=== PATIENT | female | born 2000 ===

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

== ENCOUNTER 2019-01-26 10:55 | Observation (INO) | payer OTHER ==
[2019-01-26] MEDS ORDERED: Sodium Chloride 0.9% 1,000 ML IV ONE (11:14)
[2019-01-26 11:46] LABS: BASO % 0.5 % (0.0-2.0); EOS # 0.1 K/uL (0.0-0.7); EOS % 0.6 % (0.0-4.0); HEMOGLOBIN 13.6 g/dL (11.0-16.0); LYMPH # 2.5 K/uL (1.0-4.3); LYMPH % 26.2 % (20.0-40.0); MEAN CORPUSCULAR HEMOGLOBIN 28.8 pg (27.0-31.0); MEAN CORPUSCULAR HGB CONC 32.6 g/dL (33.0-37.0); MEAN PLATELET VOLUME 8.7 fL (7.2-11.7); MONO # 0.4 K/uL (0.0-0.8); MONO % 3.7 % (0.0-10.0); NEUT # 6.6 K/uL (1.8-7.0); RBC 4.71 Mil/uL (3.80-5.20); RED CELL DISTRIBUTION WIDTH 12.9 % (11.5-14.5); WHITE BLOOD COUNT 9.6 K/uL (4.8-10.8)
[2019-01-26 11:49] LABS: MEAN CELL VOLUME 88.4 fL (81.0-99.0)
[2019-01-26 11:50] LABS: ALB/GLOB RATIO 1.6 (1.0-2.1); BLOOD UREA NITROGEN 12 mg/dL (7-17); CALCIUM 9.4 mg/dl (8.6-10.4); GFR NON-AFRICAN AMERICAN > 60; LIPASE 61 U/L (23-300)
[2019-01-26 12:03] LABS: ALT/SGPT 43 U/L (9-52); AST/SGOT 57 U/L (14-36)
[2019-01-26 12:24] LABS: INR 1.1; PROTHROMBIN TIME 11.8 SECONDS (9.7-12.2)
--- NOTE | 2019-01-26 12:55 | RAD ---
Chest x-ray single frontal view History: Abdominal pain. Comparison: None available. Findings: No focal infiltrate or effusion. Heart size within normal limits. Impression: No focal infiltrate or effusion.
[2019-01-26] MEDS ORDERED: Iodixanol 320 MG/ML 100 ML BOTTLE IV ONE (12:58)
[2019-01-26] MEDS ORDERED: Sodium Chloride 0.9% 1,000 ML ONE (13:50)
--- NOTE | 2019-01-26 14:10 | CT ---
Date of service: 01/26/2019 PROCEDURE: CT Abdomen and Pelvis. HISTORY: Abdominal pain and vomiting. COMPARISON: No prior studies available for comparison TECHNIQUE: Contiguous axial images of the abdomen and pe pelvis performed following intravenous injection of approximately 100 cc Visipaque 320 contrast material. Additional 2D sagittal and coronal reformats generated. Radiation dose: Total exam DLP = 198.0 mGy-cm. This CT exam was performed using one or more of the following dose reduction techniques: Automated exposure control, adjustment of the mA and/or kV according to patient size, and/or use of iterative reconstruction technique. FINDINGS: LOWER THORAX: There is a small hiatal hernia with what appears represent a small amount of fluid in the distal esophagus possibly due to reflux. Heart size normal. Lung bases clear. LIVER: Liver exhibits relatively normal size measuring just over 17 cm in CC dimension. No obvious hepatic masses or collections. Portal and splenic veins are opacified.. Minimal central intrahepatic biliary ductal dilatation. GALLBLADDER AND BILE DUCTS: Gallbladder is physiologically distended. No evidence of intraluminal gallbladder calculi. There appears to be a small amount of pericholecystic fluid PANCREAS: Pancreas appears unremarkable without masses collections or calcifications. No significant pancreatic ductal dilatation so far as can be seen. SPLEEN: Spleen exhibits normal size and attenuation pattern without masses collections or calcifications. ADRENALS: No adrenal lesions are identified. KIDNEYS AND URETERS: Kidneys demonstrate symmetric nephrograms. No evidence of nephrolithiasis or hydronephrosis. BLADDER: Urinary bladder is incompletely distended which in part accounts for slight thick-walled appearance however correlation with urinalysis recommended to exclude cystitis. REPRODUCTIVE: Uterus appears grossly unremarkable however the adnexa are difficult to evaluate due to what appears represent loops of unopacified small bowel as well as redundant large bowel and small amount of pelvic ascites. The possibility of cystic adnexal changes cannot be excluded. APPENDIX: What appears represent the appendix grossly unremarkable (best seen on axial series 3, image number 93 through 103). BOWEL: Evaluation of the bowel is somewhat limited due to the lack of oral contrast material. Stomach is partially distended with liquified food debris and air with slight thick-walled appearance. Visualized loops of small bowel exhibit normal contour and caliber. No evidence of acute mechanical small bowel obstruction. There is slight wall thickening of the colon despite the colon being collapsed throughout. Findings may represent a nonspecific colitis; rule out infectious versus inflammatory etiology. PERITONEUM: There is free fluid seen in the pelvis with what appears represent a small amount pericholecystic fluid as well. LYMPH NODES: Unremarkable. No enlarged lymph nodes. VASCULATURE: Unremarkable. No aortic aneurysm. No significant aortic atherosclerotic calcification or mural plaque present. BONES: Osseous structures appear grossly unremarkable. OTHER FINDINGS: None. IMPRESSION: Minimal central intrahepatic biliary ductal dilatation. There appears to be a small amount of free fluid surrounding the gallbladder. There is also small amount of pelvic ascites. Wall thickening of the colon in part due to collapse however wall thickening is somewhat greater than one would expect from on collapse alone and therefore colitis is suspected. Clinical correlation recommended. Evaluation of the adnexal structures limited as above. Follow-up pelvic ultrasound could be performed for further evaluation if indicated to exclude any cystic adnexal changes. Urinary bladder is incompletely distended which in part accounts for thick-walled appearance however correlation with urinalysis recommended to exclude cystitis
--- NOTE | 2019-01-26 14:17 | US ---
Pelvic ultrasound HISTORY: Pelvic pain. COMPARISON: None available. Technique: Real-time sonography was performed through the pelvis utilizing transabdominal and transvaginal technique. Findings: Uterus: 7.2 x 3.1 x 3.6 centimeters. Heterogeneous echotexture. Anteverted. Heterogeneous lesion within the subserosal posterior uterus suggestive for a fibroid lesion measuring 9 x 6 x 8 millimeters. Endometrium measures 4.4 millimeters, within normal limits. No free fluid in the pelvic cul-de-sac. Right ovary: 2.6 x 2.3 x 2.2 centimeters. Normal flow. Small follicles. Left ovary: 2.7 x 1.6 x 2.6 centimeters. Normal flow. Small follicles. Impression: 9 x 6 x 8 millimeter heterogeneous lesion within the posterior subserosal uterus suggestive for a fibroid lesion. Clinical correlation.
[2019-01-26 14:57] LABS: SQUAMOUS EPITHIAL < 1 /hpf (0-5); URINE BILIRUBIN NEGATIVE (NEGATIVE); URINE BLOOD NEGATIVE (NEGATIVE); URINE CLARITY Clear (Clear); URINE COLOR Yellow (YELLOW); URINE GLUCOSE (UA) NORMAL (Normal); URINE LEUKOCYTE ESTERASE NEG Leu/uL (Negative); URINE PROTEIN NEGATIVE (NEGATIVE); URINE UROBILINOGEN NORMAL mg/dL (0.2-1.0)
[2019-01-26 14:59] LABS: HCG,QUALITATIVE URINE NEGATIVE (NEGATIVE)
--- NOTE | 2019-01-26 15:29 | C.PDOC ---
Time Seen by Provider: 01/26/19 11:03 Chief Complaint (Nursing): GI Problem Past Medical History Vital Signs: Last Vital Signs Temp 97.8 F 01/26/19 13:36 Pulse 72 01/26/19 14:36 Resp 16 01/26/19 14:36 BP 114/77 01/26/19 14:36 Pulse Ox 96 01/26/19 14:36 - Medical History PMH: Asthma Surgical History: Tonsillectomy Family History: States: Unknown Family Hx - Social History Hx Alcohol Use: No Hx Substance Use: Yes (MARIJUANA) - Immunization History Hx Tetanus Toxoid Vaccination: No Hx Influenza Vaccination: No Hx Pneumococcal Vaccination: No ED Course And Treatment - Laboratory Results Result Diagrams: 01/26/19 11:26 01/26/19 11:26 Lab Results: PT 11.8 SECONDS (9.7-12.2) 01/26/19 11:26 INR 1.1 01/26/19 11:26 APTT 22 SECONDS (21-34) 01/26/19 11:26 Total Bilirubin 0.9 mg/dL (0.2-1.3) 01/26/19 11:26 AST 57 U/L (14-36) H D 01/26/19 11:26 ALT 43 U/L (9-52) 01/26/19 11:26 Alkaline Phosphatase 64 U/L (38-126) 01/26/19 11:26 Total Protein 8.1 g/dL (6.3-8.3) 01/26/19 11:26 Albumin 5.0 g/dL (3.5-5.0) 01/26/19 11:26 Globulin 3.1 gm/dL (2.2-3.9) 01/26/19 11:26 Albumin/Globulin Ratio 1.6 (1.0-2.1) 01/26/19 11:26 Lipase 61 U/L (23-300) 01/26/19 11:26 Urine Color Yellow (YELLOW) 01/26/19 14:47 Urine Clarity Clear (Clear) 01/26/19 14:47 Urine pH 7.0 (5.0-8.0) 01/26/19 14:47 Ur Specific Allyn 1.016 (1.003-1.030) 01/26/19 14:47 Urine Protein Negative mg/dL (NEGATIVE) 01/26/19 14:47 Urine Glucose (UA) Normal mg/dL (Normal) 01/26/19 14:47 Urine Ketones 2+ mg/dL (NEGATIVE) H 01/26/19 14:47 Urine Blood Negative (NEGATIVE) 01/26/19 14:47 Urine Nitrate Negative (NEGATIVE) 01/26/19 14:47 Urine Bilirubin Negative (NEGATIVE) 01/26/19 14:47 Urine Urobilinogen Normal mg/dL (0.2-1.0) 01/26/19 14:47 Ur Leukocyte Esterase Neg [place]/uL (Negative) 01/26/19 14:47 Urine WBC (Auto) 2 /hpf (0-5) 01/26/19 14:47 Urine RBC (Auto) < 1 /hpf (0-3) 01/26/19 14:47 Ur Squamous Epith Cells < 1 /hpf (0-5) 01/26/19 14:47 Urine HCG, Qual Negative (NEGATIVE) 01/26/19 14:47 Beta HCG, Quant < 2.39 mIU/ML 01/26/19 11:26 Urine HCG, Qual Negative (NEGATIVE) 01/26/19 14:47 O2 Sat by Pulse Oximetry: 96 Disposition - Disposition Forms: [employer] (Romanian)
--- NOTE | 2019-01-26 15:34 | C.PDOC ---
History Of Present Illness 18 y/o female,w/PMhx of asthma and depression, presents to the ER complaining of generalized abdominal pain,nausea, nb/nb vomiting, and nb diarrhea which has been present for the past 2 days. Patient describes the pain as cramping. Unable to tolerate PO secondary to continuous vomiting. She notes that she went to work in the morning today, and went home because she was not feeling well. She states that she had a near-syncopal episode when she was was walking from the bathroom in the afternoon, preceded by diaphoresis, blurry vision, and nausea. No head strike, seizure activity, or LOC, witnessed by family members. No sick contacts or recent travel. Denies having fever,chills, neck pain, CP, SOB, weakness, numbness, and parasthesias. Time Seen by Provider: 01/26/19 11:03 Chief Complaint (Nursing): GI Problem History Per: Patient History/Exam Limitations: no limitations Onset/Duration Of Symptoms: Days Current Symptoms Are (Timing): Still Present Severity: Moderate Past Medical History Reviewed: Historical Data, Nursing Documentation, Vital Signs Vital Signs: Last Vital Signs Temp 97.8 F 01/26/19 13:36 Pulse 72 01/26/19 14:36 Resp 16 01/26/19 14:36 BP 114/77 01/26/19 14:36 Pulse Ox 96 01/26/19 14:36 - Medical History PMH: Asthma Surgical History: Tonsillectomy Family History: States: No Known Family Hx - Social History Hx Alcohol Use: No Hx Substance Use: Yes (MARIJUANA) - Immunization History Hx Tetanus Toxoid Vaccination: No Hx Influenza Vaccination: No Hx Pneumococcal Vaccination: No Review Of Systems Except As Marked, All Systems Reviewed And Found Negative. Constitutional: Negative for: Fever, Chills Eyes: Negative for: Vision Change Cardiovascular: Negative for: Chest Pain, Palpitations, Light Headedness Respiratory: Negative for: Cough, Shortness of Breath Gastrointestinal: Positive for: Nausea, Vomiting, Abdominal Pain, Diarrhea Genitourinary: Negative for: Dysuria, Frequency, Vaginal Discharge, Vaginal Bleeding Musculoskeletal: Negative for: Neck Pain, Back Pain Skin: Negative for: Rash, Bruising Neurological: Negative for: Weakness, Numbness, Altered Mental Status, Headache, Dizziness Physical Exam - Physical Exam Appears: Non-toxic, In Acute Distress (actively vomiting) Skin: Warm, Dry, Pale Head: Atraumatic, Normacephalic Eye(s): bilateral: Normal Inspection, PERRL, EOMI Nose: Normal Oral Mucosa: Dry, No Drooling, No Trismus Throat: Normal, No Erythema, No Exudate Neck: Normal ROM, Supple Chest: Symmetrical Cardiovascular: Rhythm Regular Respiratory: Normal Breath Sounds, No Rales, No Rhonchi, No Wheezing Gastrointestinal/Abdominal: Bowel Sounds (normoactive), Soft, Tenderness (generalized abdominal tenderness), No Guarding, No Rebound Back: Normal Inspection, No CVA Tenderness Extremity: Normal ROM, Capillary Refill (<2s) Extremity: Bilateral: Atraumatic, Normal Color And Temperature, Normal ROM Pulses: Left Radial: Normal, Right Radial: Normal Neurological/Psych: Oriented x3, Normal Speech, Normal Motor, Normal Sensation Gait: Steady ED Course And Treatment - Laboratory Results Result Diagrams: 01/26/19 11:26 01/26/19 11:26 Lab Results: PT 11.8 SECONDS (9.7-12.2) 01/26/19 11:26 INR 1.1 01/26/19 11:26 APTT 22 SECONDS (21-34) 01/26/19 11:26 Total Bilirubin 0.9 mg/dL (0.2-1.3) 01/26/19 11:26 AST 57 U/L (14-36) H D 01/26/19 11:26 ALT 43 U/L (9-52) 01/26/19 11: Alkaline Phosphatase 64 U/L (38-126) 01/26/19 11:26 Total Protein 8.1 g/dL (6.3-8.3) 01/26/19 11:26 Albumin 5.0 g/dL (3.5-5.0) 01/26/19 11:26 Globulin 3.1 gm/dL (2.2-3.9) 01/26/19 11: Albumin/Globulin Ratio 1.6 (1.0-2.1) 01/26/19 11: Lipase 61 U/L (23-300) 01/26/19 11:26 Urine Color Yellow (YELLOW) 01/26/19 14:47 Urine Clarity Clear (Clear) 01/26/19 14:47 Urine pH 7.0 (5.0-8.0) 01/26/19 14:47 Ur Specific Ethel 1.016 (1.003-1.030) 01/26/19 14:47 Urine Protein Negative mg/dL (NEGATIVE) 01/26/19 14:47 Urine Glucose (UA) Normal mg/dL (Normal) 01/26/19 14:47 Urine Ketones 2+ mg/dL (NEGATIVE) H 01/26/19 14:47 Urine Blood Negative (NEGATIVE) 01/26/19 14:47 Urine Nitrate Negative (NEGATIVE) 01/26/19 14:47 Urine Bilirubin Negative (NEGATIVE) 01/26/19 14:47 Urine Urobilinogen Normal mg/dL (0.2-1.0) 01/26/19 14:47 Ur Leukocyte Esterase Neg [place]/uL (Negative) 01/26/19 14:47 Urine WBC (Auto) 2 /hpf (0-5) 01/26/19 14:47 Urine RBC (Auto) < 1 /hpf (0-3) 01/26/19 14:47 Ur Squamous Epith Cells < 1 /hpf (0-5) 01/26/19 14:47 Urine HCG, Qual Negative (NEGATIVE) 01/26/19 14:47 Beta HCG, Quant < 2.39 mIU/ML 01/26/19 11:26 Urine HCG, Qual Negative (NEGATIVE) 01/26/19 14:47 O2 Sat by Pulse Oximetry: 96 (RA) Pulse Ox Interpretation: Normal - Radiology CXR: Viewed By Me, Read By Radiologist CXR Interpretation: Yes: No Acute Disease - Other Rad Transvaginal Pelvic US X-Ray: Read By Radiologist Interpretation: Impression: 9mm x 6mm x 8mm heterogeneous lesion within the posterior subserosal uterus suggrestive for fibroid lesion. - CT Scan/US Abd/Pelvis CT with IV Contrast Other Rad Studies (CT/US): Radiology Report Reviewed CT/US Interpretation: Impression: Minimal Central intrahepatic biliary ductal dilatation. There appears to be a small amount of free fluid surrounding the gallbladder. There is also a small amount of pelvic ascites. Wall thickening of the colon in part due to collapse however wall thickening is somewhat greater than one would expect from collapse alone and therefore colitis is suspected. Clinical correlation is recommended. Evaluation of the adnexal structures limited as above. Pelvic ultrasound could be performed for further evaluation as indicated to exclude any cystic adnexal changes. Urinary bladder is incompletely distended which in part accounts for thick-walled appearance however correlation with urinalysis recommended to exclude cystitis Medical Decision Making Medical Decision Making: Plan: --Labs --UA --CT-Abd & Pelv. --US-Abd/Pelv/Trans --Orthostatics --IVF --Pepcid IV --Zofran IV Labwork reviewed, unremarkable. beta-hcg negative CT shows colitis, fluid around gall bladder, mildly dilated intrahepatic biliary duct Transvaginal ultrasound shows no acute pathology, no torsion 1530 Patient continues to vomit and complain of pain despite medications. Zofran 8mg, Reglan 4mg, Pepcid 20mg, Toradol 30mg IV. Will seek admission for intractable vomiting, colitis, vasovagal syncope. [address] Sheridan who accepted patient for observation for intractable vomiting, colitis, vasovagal syncope. Pt made aware of change in disposition. Pt continues to retch, VSS at this time. Disposition - Disposition Disposition: HOSPITALIZED Disposition Time: 14:45 Condition: STABLE - Clinical Impression Clinical Impression: Vasovagal syncope, Colitis, Intractable vomiting, Uterine fibroid - PA / WRIST LINER / Resident Statement MD/DO has reviewed & agrees with the documentation as recorded. - Scribe Statement The provider has reviewed the documentation as recorded by the Capoibe Chloe Bailon Provider Attestation All medical record entries made by the Capoibjulian were at my direction and personally dictated by me. I have reviewed the chart and agree that the record accurately reflects my personal performance of the history, physical exam, medical decision making, and the department course for this patient. I have also personally directed, reviewed, and agree with the discharge instructions and disposition.
[2019-01-26 15:44] LABS: BARBITURATES, UR NEGATIVE (NEGATIVE); BENZODIAZEPINES, UR NEGATIVE (NEGATIVE); OPIATES, UR NEGATIVE (NEGATIVE); PHENCYCLIDINE, UR NEGATIVE (NEGATIVE)
[2019-01-26] MEDS: Sodium Chloride 0.9% 1,000 ML IV SCH ×2 (18:16→23:02)
[2019-01-27] MEDS: Sodium Chloride 0.9% 1,000 ML IV SCH ×5 (04:00→23:45)
[2019-01-27] MEDS: metroNIDAZOLE IV 500 mg/100 ml 500 MG/100 ML BAG IVPB SCH ×2 (13:55→21:21)
[2019-01-27 14:30] LABS: BASO % 0.3 % (0.0-2.0); EOS # 0.1 K/uL (0.0-0.7); EOS % 0.7 % (0.0-4.0); LYMPH # 2.4 K/uL (1.0-4.3); LYMPH % 28.8 % (20.0-40.0); MEAN CELL VOLUME 88.8 fL (81.0-99.0); MEAN CORPUSCULAR HEMOGLOBIN 29.7 pg (27.0-31.0); MEAN CORPUSCULAR HGB CONC 33.5 g/dL (33.0-37.0); MEAN PLATELET VOLUME 8.2 fL (7.2-11.7); MONO # 0.7 K/uL (0.0-0.8); MONO % 8.5 % (0.0-10.0); NEUT % 61.7 % (50.0-75.0); NRBC % 0.1 % (0.0-2.0); RBC 3.89 Mil/uL (3.80-5.20); RED CELL DISTRIBUTION WIDTH 12.4 % (11.5-14.5); WHITE BLOOD COUNT 8.2 K/uL (4.8-10.8)
[2019-01-27 14:33] LABS: HEMOGLOBIN 11.6 g/dL (11.0-16.0)
[2019-01-27 14:42] LABS: ALB/GLOB RATIO 1.5 (1.0-2.1); ALBUMIN 3.4 g/dL (3.5-5.0); ALT/SGPT 37 U/L (9-52); AST/SGOT 37 U/L (14-36); BLOOD UREA NITROGEN 7 mg/dL (7-17); GFR NON-AFRICAN AMERICAN > 60
--- NOTE | 2019-01-27 15:19 | CP.PCM.CON ---
History of Present Illness - History of Present Illness History of Present Illness: This is a 18 year old woman with abdominal pain. Patient noted sudden onset of diffuse abdominal pain yesterday, cramping/fullness, persistent until today. It was accompanied by nausea and vomiting, though she has not vomited today. Urine toxicology was positive for cannabinoids. She reports using marijuana daily. She denies having fever, chills, difficulty swallowing, heartburn, diarrhea, rectal bleeding, and constipation. Past Patient History - Past Social History Smoking Status: Never Smoked - PULMONARY Hx Asthma: Yes - PSYCHIATRIC Hx Substance Use: Yes (MARIJUANA) - SURGICAL HISTORY Hx Tonsillectomy: Yes Meds Allergies/Adverse Reactions: Allergies Allergy/AdvReac Type Severity Reaction Status Date / Time No Known Allergies Allergy Verified 01/26/19 11:11 - Medications Medications: Current Medications Dicyclomine HCl (Bentyl) 10 mg PO TID PRN PRN Reason: Irritable bowel symptoms Docusate Sodium (Colace) 100 mg PO BID [facility] Sodium Chloride (Sodium Chloride 0.9%) 1,000 mls @ 200 mls/hr IV .Q5H [facility] Last Admin: 01/27/19 14:30 Dose: Not Given Metronidazole (Flagyl) 500 mg in 100 mls @ 100 mls/hr IVPB Q8H [facility]; Protocol Last Admin: 01/27/19 13:55 Dose: 100 mls/hr Influenza Virus Vaccine (Flucelvax Quad [id number] Syr) 60 mcg IM .ONCE ONE Stop: 01/28/19 10:01 Ketorolac Tromethamine (Toradol) 15 mg IVP Q6 PRN PRN Reason: Pain, moderate (4-7) Last Admin: 01/27/19 15:04 Dose: 15 mg Ondansetron HCl (Zofran Inj) 4 mg IVP Q4 PRN PRN Reason: Nausea/Vomiting Last Admin: 01/27/19 12:11 Dose: 4 mg Pantoprazole Sodium (Protonix Inj) 40 mg IVP DAILY [facility] Last Admin: 01/27/19 09:26 Dose: 40 mg Pneumococcal Polyvalent Vaccine (Pneumovax 23 Vaccine) 0.5 ml IM .ONCE ONE Stop: 01/28/19 10:01 Zolpidem Tartrate (Ambien) 5 mg PO HS PRN PRN Reason: Insomnia Last Admin: 01/26/19 22:51 Dose: 5 mg Physical Exam - Constitutional Appears: No Acute Distress - Head Exam Head Exam: ATRAUMATIC, NORMOCEPHALIC - Eye Exam Eye Exam: EOMI, PERRL - Neck Exam Neck exam: Negative for: Lymphadenopathy, Thyromegaly - Respiratory Exam Respiratory Exam: NORMAL BREATHING PATTERN. absent: Rales, Rhonchi, Wheezes - Cardiovascular Exam Cardiovascular Exam: REGULAR RHYTHM, +S1, +S2. absent: Gallop, Rubs, Systolic Murmur - GI/Abdominal Exam GI & Abdominal Exam: Normal Bowel Sounds, Soft, Tenderness. absent: Mass, Organomegaly Additional comments: Mild tenderness lower abdomen - Rectal Exam Rectal Exam: Deferred - Extremities Exam Extremities exam: Negative for: calf tenderness, pedal edema Results - Vital Signs Recent Vital Signs: Last Vital Signs Temp 98.8 F 01/27/19 07:00 Pulse 90 01/27/19 07:00 Resp 20 01/27/19 07:00 BP 93/46 L 01/27/19 07:00 Pulse Ox 97 01/27/19 07:00 - Labs Result Diagrams: 01/27/19 14:16 01/27/19 14:16 Labs: Laboratory Results - last 24 hr 01/26/19 01/27/19 01/27/19 14:47 14:16 14:16 WBC 8.2 RBC 3.89 Hgb 11.6 D Hct 34.5 MCV 88.8 MCH 29.7 MCHC 33.5 RDW 12.4 Plt Count 153 MPV 8.2 Neut % (Auto) 61.7 Lymph % (Auto) 28.8 [place] % (Auto) 8.5 Eos % (Auto) 0.7 Baso % (Auto) 0.3 Neut # (Auto) 5.0 Lymph # (Auto) 2.4 [place] # (Auto) 0.7 Eos # (Auto) 0.1 Baso # (Auto) 0.0 Sodium 136 Potassium 3.6 Chloride 110 H Carbon Dioxide 19 L Anion Gap 11 BUN 7 Creatinine 0.6 L Est GFR ( Amer) > 60 Est GFR (Non-Af Amer) > 60 Random Glucose 73 D Calcium 8.0 L Total Bilirubin 0.8 AST 37 H D ALT 37 Alkaline Phosphatase 49 Total Protein 5.7 L Albumin 3.4 L D Globulin 2.3 Albumin/Globulin Ratio 1.5 Urine Opiates Screen Negative Urine Methadone Screen Negative Ur Barbiturates Screen Negative Ur Phencyclidine Scrn Negative Ur Amphetamines Screen Negative U Benzodiazepines Scrn Negative U Oth Cocaine Metabols Negative U Cannabinoids Screen Positive H Assessment & Plan (1) Intractable vomiting Assessment and Plan: Patient was admitted with intractable vomiting. The differential diagnosis includes viral gastroenteritis, peptic ulcer disease, gallbladder disease, and cannabinoid hyperemesis syndrome. Will schedule EGD. Status: Acute
--- NOTE | 2019-01-27 21:24 | CP.PCM.HP ---
Present on Admission - Present on Admission Any Indicators Present on Admission: No Past Patient History - Past Social History Smoking Status: Never Smoked - PULMONARY Hx Asthma: Yes - PSYCHIATRIC Hx Substance Use: Yes (MARIJUANA) - SURGICAL HISTORY Hx Tonsillectomy: Yes Meds Allergies/Adverse Reactions: Allergies Allergy/AdvReac Type Severity Reaction Status Date / Time No Known Allergies Allergy Verified 01/26/19 11:11 Results - Vital Signs Recent Vital Signs: Last Vital Signs Temp 99.1 F 01/27/19 16:00 Pulse 74 01/27/19 16:00 Resp 20 01/27/19 16:00 BP 95/56 L 01/27/19 16:00 Pulse Ox 96 01/27/19 16:00 - Labs Result Diagrams: 01/27/19 14:16 01/27/19 14:16 Labs: Laboratory Results - last 24 hr 01/27/19 01/27/19 14:16 14:16 WBC 8.2 RBC 3.89 Hgb 11.6 D Hct 34.5 MCV 88.8 MCH 29.7 MCHC 33.5 RDW 12.4 Plt Count 153 MPV 8.2 Neut % (Auto) 61.7 Lymph % (Auto) 28.8 [place] % (Auto) 8.5 Eos % (Auto) 0.7 Baso % (Auto) 0.3 Neut # (Auto) 5.0 Lymph # (Auto) 2.4 [place] # (Auto) 0.7 Eos # (Auto) 0.1 Baso # (Auto) 0.0 Sodium 136 Potassium 3.6 Chloride 110 H Carbon Dioxide 19 L Anion Gap 11 BUN 7 Creatinine 0.6 L Est GFR ( Amer) > 60 Est GFR (Non-Af Amer) > 60 Random Glucose 73 D Calcium 8.0 L Total Bilirubin 0.8 AST 37 H D ALT 37 Alkaline Phosphatase 49 Total Protein 5.7 L Albumin 3.4 L D Globulin 2.3 Albumin/Globulin Ratio 1.5
[2019-01-28] MEDS: Sodium Chloride 0.9% 1,000 ML IV SCH ×4 (03:44→20:40)
[2019-01-28] MEDS: metroNIDAZOLE IV 500 mg/100 ml 500 MG/100 ML BAG IVPB SCH ×3 (03:44→21:24)
--- NOTE | 2019-01-28 05:49 | HP ---
CHIEF COMPLAINT: Abdominal pain, nausea, vomiting x12 hours. HISTORY OF PRESENTING ILLNESS: This is a 18-year-old female with no significant past medical history, who day before yesterday developed acute onset of nausea, vomiting, abdominal pain, generalized weakness, tiredness, anorexia, malaise, and fatigue. Vomitus is yellow. No blood. No fever. No chills. The patient has generalized weakness. She denies any history of tenesmus. She denies any history of rectal pain. She denies any history of joint pain or hip pain. She denies any history of skin rash. There is weakness, tiredness, and dizziness. The patient denies any polyuria, polydipsia, or polyphagia. There is no history of hematuria or polyuria. She denies any diplopia. There is no history of chest pain, shortness of breath, weakness, or polyphagia. SOCIAL HISTORY: Nonsmoker, and she uses marijuana. FAMILY HISTORY: Noncontributory. PAST MEDICAL HISTORY: Asthma. CURRENT MEDICATIONS: None. PHYSICAL EXAMINATION: GENERAL: A young female in no distress. She is underweight. VITAL SIGNS: Blood pressure 114/77, pulse 72, respiratory rate 16, temperature 97.8. Upon standing, her blood pressure drops to 90/60, heart rate goes up to 112. SKIN: Dry. Poor turgor. HEENT: Atraumatic, normocephalic. Negative pallor. Negative jaundice. Extraocular movements are intact. NECK: Supple. No JVD. No lymph node. No thyromegaly. No carotid bruit. CHEST WALL: Bilateral symmetrical expansion. No tenderness or deformity. LUNGS: Bilaterally clear. No rales. No rhonchi. CARDIOVASCULAR SYSTEM: PMI not localized. S1, S2 regular. No heave. No thrill. No rigor. ABDOMEN: Soft, nontender. Bowel sounds are exaggerated. RECTAL: No masses. No blood. EXTREMITIES: No clubbing, cyanosis, or edema. CENTRAL NERVOUS SYSTEM: Awake, alert, and oriented x3. Cranial nerves II through XII are normal. Power 5/5 x4. Plantars are downgoing. ASSESSMENT: 1. Acute gastroenteritis. 2. Dehydration. PLAN: Admit. Detailed orders are written. Seen and examined. Vahid Sheridan MD [facility] # [id number]
[2019-01-28] MEDS ORDERED: Influenza Vaccine 60 mcg/0.5 mL SYR (4YR UP) IM ONE (10:00)
[2019-01-28] MEDS ORDERED: Pneumococcal 23-Valent Vaccine IM ONE (10:00)
--- NOTE | 2019-01-28 12:18 | US ---
Abdominal ultrasound HISTORY: Abdominal pain. COMPARISON: CT scan dated 01/26/2019 TECHNIQUE: Real-time sonography was performed through the abdomen. FINDINGS: Trace perihepatic and abdominal ascites noted. Liver: 15.3 centimeters in length. Normal echogenicity. Gallbladder: No calculi or sludge. Gallbladder wall mildly thickened measuring up to 3.7 millimeters. Associated gallbladder wall edema. Negative sonographic Lake's sign. Common bile duct measures 2.3 millimeters, within normal limits. Limited visualization of the pancreas. Spleen measures 11 centimeters in length, within normal limits. Visualized aorta and IVC are preserved. Right kidney: 9.7 x 3.6 x 4.1 centimeters. No calculi or hydronephrosis. Left Kidney: 10.2 x 4.6 x 5.4 centimeters. No calculi or hydronephrosis. Impression: Gallbladder wall thickening measuring up to 3.7 millimeters with associated wall edema as well as trace pericholecystic fluid. These findings are nonspecific and underlying acalculous acute cholecystitis cannot entirely be excluded. Clinical correlation. Correlation with nuclear medicine study may be helpful for further evaluation if clinically indicated. Trace perihepatic and abdominal ascites. Limited visualization of the pancreas. A preliminary report was generated at 9:21 p.m. on 01/27/[address] Guillaume Cavazos from [employer]. This case was placed in the PA review folder.
[2019-01-28] MEDS ORDERED: Lactated Ringer's 500 ML IV ONE ×2 (14:32)
[2019-01-28] MEDS ORDERED: Lidocaine Hydrochloride 10 ML INJ ONE (14:47)
[2019-01-28] MEDS ORDERED: Midazolam 2 MG/2 ML VIAL ONE (14:47)
[2019-01-28] MEDS ORDERED: Propofol 10 mg/ml Inj (20 ML) ONE (14:47)
[2019-01-28 17:47] VITALS: RESP 20
--- NOTE | 2019-01-28 21:13 | CP.PCM.PN ---
Subjective - Date & Time of Evaluation Date of Evaluation: 01/28/19 Time of Evaluation: 07:00 - Subjective Subjective: dictated Objective - Vital Signs/Intake and Output Vital Signs (last 24 hours): Temp Pulse Resp BP Pulse Ox 98.8 F 53 L 20 122/68 97 01/28/19 17:46 01/28/19 17:46 01/28/19 17:46 01/28/19 17:46 01/28/19 17:46 Intake and Output: 01/28/19 01/29/19 18:59 06:59 Intake Total 3100 Balance 3100 - Medications Medications: Current Medications Dicyclomine HCl (Bentyl) 10 mg PO TID PRN PRN Reason: Irritable bowel symptoms Docusate Sodium (Colace) 100 mg PO BID [facility] Last Admin: 01/28/19 17:41 Dose: 100 mg Sodium Chloride (Sodium Chloride 0.9%) 1,000 mls @ 200 mls/hr IV .Q5H [facility] Last Admin: 01/28/19 20:40 Dose: 200 mls/hr Metronidazole (Flagyl) 500 mg in 100 mls @ 100 mls/hr IVPB Q8H [facility]; Protocol Last Admin: 01/28/19 12:31 Dose: 100 mls/hr Ketorolac Tromethamine (Toradol) 15 mg IVP Q6 PRN PRN Reason: Pain, moderate (4-7) Last Admin: 01/28/19 17:04 Dose: 15 mg Ondansetron HCl (Zofran Inj) 4 mg IVP Q4 PRN PRN Reason: Nausea/Vomiting Last Admin: 01/27/19 12:11 Dose: 4 mg Pantoprazole Sodium (Protonix Inj) 40 mg IVP DAILY [facility] Last Admin: 01/28/19 09:52 Dose: 40 mg Zolpidem Tartrate (Ambien) 5 mg PO HS PRN PRN Reason: Insomnia Last Admin: 01/26/19 22:51 Dose: 5 mg - Labs Labs: 01/27/19 14:16 01/27/19 14:16 PT 11.8 SECONDS (9.7-12.2) 01/26/19 11:26 INR 1.1 01/26/19 11:26 APTT 22 SECONDS (21-34) 01/26/19 11:26
--- NOTE | 2019-01-29 00:44 | PN ---
DATE: 01/28/2019 SUBJECTIVE: The patient had an EGD which showed gastritis. No fever. Decreased nausea and vomiting. Mild abdominal pain. PHYSICAL EXAMINATION: VITAL SIGNS: Blood pressure 122/68, pulse 53, respiratory rate 20, temperature 98.8. LUNGS: Clear. CARDIOVASCULAR SYSTEM: S1 and S2, regular. ABDOMEN: Soft. ASSESSMENT: 1. Gastritis. 2. Dehydration. PLAN: Continue current medication. Monitor the patient. Vahid Sheridan MD
[2019-01-29] MEDS: Sodium Chloride 0.9% 1,000 ML IV SCH ×4 (00:45→10:58)
[2019-01-29] MEDS: metroNIDAZOLE IV 500 mg/100 ml 500 MG/100 ML BAG IVPB SCH ×2 (04:44→11:44)
--- NOTE | 2019-01-29 07:43 | CP.PCM.PN ---
Subjective - Date & Time of Evaluation Date of Evaluation: 01/29/19 Time of Evaluation: 07:39 - Subjective Subjective: Patient reports feeling nauseated this morning but has not vomited. She has abdominal discomfort which seems like a hunger ainsley to her. She has not had a bowel movement so far this morning. Objective - Vital Signs/Intake and Output Vital Signs (last 24 hours): Temp Pulse Resp BP Pulse Ox 98.2 F 56 L 20 110/63 97 01/28/19 23:32 01/28/19 23:32 01/28/19 23:32 01/28/19 23:32 01/28/19 23:32 Intake and Output: 01/29/19 01/29/19 06:59 18:59 Intake Total 3500 Output Total 400 Balance 3100 - Medications Medications: Current Medications Dicyclomine HCl (Bentyl) 10 mg PO TID PRN PRN Reason: Irritable bowel symptoms Docusate Sodium (Colace) 100 mg PO BID [facility] Last Admin: 01/28/19 17:41 Dose: 100 mg Sodium Chloride (Sodium Chloride 0.9%) 1,000 mls @ 200 mls/hr IV .Q5H [facility] Last Admin: 01/29/19 06:31 Dose: Not Given Metronidazole (Flagyl) 500 mg in 100 mls @ 100 mls/hr IVPB Q8H [facility]; Protocol Last Admin: 01/29/19 04:44 Dose: 100 mls/hr Ketorolac Tromethamine (Toradol) 15 mg IVP Q6 PRN PRN Reason: Pain, moderate (4-7) Last Admin: 01/28/19 17:04 Dose: 15 mg Ondansetron HCl (Zofran Inj) 4 mg IVP Q4 PRN PRN Reason: Nausea/Vomiting Last Admin: 01/27/19 12:11 Dose: 4 mg Pantoprazole Sodium (Protonix Inj) 40 mg IVP DAILY [facility] Last Admin: 01/28/19 09:52 Dose: 40 mg Zolpidem Tartrate (Ambien) 5 mg PO HS PRN PRN Reason: Insomnia Last Admin: 01/26/19 22:51 Dose: 5 mg - Labs Labs: 01/27/19 14:16 01/27/19 14:16 PT 11.8 SECONDS (9.7-12.2) 01/26/19 11:26 INR 1.1 01/26/19 11:26 APTT 22 SECONDS (21-34) 01/26/19 11:26 - Constitutional Appears: No Acute Distress - Head Exam Head Exam: ATRAUMATIC, NORMOCEPHALIC - Eye Exam Eye Exam: EOMI, PERRL - Neck Exam Neck Exam: absent: Lymphadenopathy, Thyromegaly - Respiratory Exam Respiratory Exam: NORMAL BREATHING PATTERN. absent: Rales, Rhonchi, Wheezes - Cardiovascular Exam Cardiovascular Exam: REGULAR RHYTHM, +S1, +S2. absent: Gallop, Rubs, Murmur - GI/Abdominal Exam GI & Abdominal Exam: Soft, Normal Bowel Sounds. absent: Tenderness, Mass, Organomegaly - Rectal Exam Rectal Exam: Deferred - Extremities Exam Extremities Exam: absent: Calf Tenderness, Pedal Edema Assessment and Plan (1) Intractable vomiting Assessment & Plan: Nausea and vomiting is improving. Although the ultrasound showed thickening of the wall of the GB, the HIDA scan is, preliminarily, normal. Will advance diet and observe. Status: Acute
--- NOTE | 2019-01-29 08:27 | NM ---
Date of service: 01/29/2019 PROCEDURE: Nuclear Medicine Hepatobiliary Scan HISTORY: Rule out acalculous cholecytstitis COMPARISON: None available. TECHNIQUE: mCi of technetium 99m Mebrofenin was administered intravenously. Planar images of the abdomen were obtained at 5 min intervals to 60 mins. Delayed images were also obtained. FINDINGS: LIVER: 4.3 COMMON BILE DUCT: identified at 20 mins. GALLBLADDER: identified at 35 mins. SMALL BOWEL: Identified at 30 mins. IMPRESSION: Normal Hepatobiliary Scan. The cystic duct is patent.
[2019-01-29 11:50] LABS: BASO % 0.5 % (0.0-2.0); EOS # 0.1 K/uL (0.0-0.7); EOS % 0.8 % (0.0-4.0); HEMOGLOBIN 12.5 g/dL (11.0-16.0); LYMPH # 1.3 K/uL (1.0-4.3); LYMPH % 18.3 % (20.0-40.0); MEAN CELL VOLUME 88.6 fL (81.0-99.0); MEAN CORPUSCULAR HEMOGLOBIN 29.9 pg (27.0-31.0); MEAN CORPUSCULAR HGB CONC 33.8 g/dL (33.0-37.0); MEAN PLATELET VOLUME 8.2 fL (7.2-11.7); MONO # 0.4 K/uL (0.0-0.8); MONO % 5.4 % (0.0-10.0); NEUT # 5.5 K/uL (1.8-7.0); RBC 4.18 Mil/uL (3.80-5.20); RED CELL DISTRIBUTION WIDTH 12.4 % (11.5-14.5); WHITE BLOOD COUNT 7.3 K/uL (4.8-10.8)
[2019-01-29 12:02] LABS: BLOOD UREA NITROGEN 4 mg/dL (7-17); CALCIUM 8.3 mg/dl (8.6-10.4); GFR NON-AFRICAN AMERICAN > 60
[2019-01-29] MEDS ORDERED: Potassium Chloride 20 mEq ER Tab PO STA (14:37)
[2019-01-29] MEDS ORDERED: Potassium Chloride 20 mEq ER Tab PO ONE (17:00)
[2019-01-29 17:01] VITALS: BP 109/66; PULSE 62; TEMP 98.6; O2SAT 98
--- NOTE | 2019-01-29 18:17 | CP.PCM.PN ---
Subjective - Date & Time of Evaluation Date of Evaluation: 01/29/19 Time of Evaluation: 11:10 - Subjective Subjective: patient seen today states abdiminal pain an d [place] improved , denies any vomiting , tolerating [place] diet diet advanced to bland diet Objective - Vital Signs/Intake and Output Vital Signs (last 24 hours): Temp Pulse Resp BP Pulse Ox 98.6 F 62 20 109/66 98 01/29/19 16:00 01/29/19 16:00 01/29/19 16:00 01/29/19 16:00 01/29/19 16:00 Intake and Output: 01/29/19 01/29/19 06:59 18:59 Intake Total 3500 Output Total 400 Balance 3100 - Medications Medications: Current Medications Dicyclomine HCl (Bentyl) 10 mg PO TID PRN PRN Reason: Irritable bowel symptoms Docusate Sodium (Colace) 100 mg PO BID [facility] Last Admin: 01/29/19 10:32 Dose: Not Given Sodium Chloride (Sodium Chloride 0.9%) 1,000 mls @ 200 mls/hr IV .Q5H [facility] Last Admin: 01/29/19 10:58 Dose: Not Given Metronidazole (Flagyl) 500 mg in 100 mls @ 100 mls/hr IVPB Q8H [facility]; Protocol Last Admin: 01/29/19 11:44 Dose: 100 mls/hr Ondansetron HCl (Zofran Inj) 4 mg IVP Q4 PRN PRN Reason: Nausea/Vomiting Last Admin: 01/29/19 10:31 Dose: 4 mg Pantoprazole Sodium (Protonix Inj) 40 mg IVP DAILY [facility] Last Admin: 01/29/19 10:31 Dose: 40 mg Zolpidem Tartrate (Ambien) 5 mg PO HS PRN PRN Reason: Insomnia Last Admin: 01/26/19 22:51 Dose: 5 mg - Labs Labs: 01/29/19 11:31 01/29/19 11:31 PT 11.8 SECONDS (9.7-12.2) 01/26/19 11:26 INR 1.1 01/26/19 11:26 APTT 22 SECONDS (21-34) 01/26/19 11:26 Assessment and Plan - Assessment and Plan (Free Text) Assessment: A/P 18 yr old female admitted for abdominal pain accompanied by nausea and vomiting, Urine toxicology was positive for cannabinoids. s/p EGD- see full report for details PTH- negative H PYLORI HIDA scan- NEGATIVE diet advanced to bland and tolerated without any problems repat labs done - WNL except K-3 and replaced with KCL D/w Dr. calzada, cleared fro discharge home today and f/u with clininc / PMD in 1 week discharge plan discussed with sylvia who understands and agrees with plan RX given for pepcid and bentyl
--- NOTE | 2019-01-30 05:15 | DS ---
DISCHARGE DIAGNOSES: 1. Acute gastritis. 2. Dehydration. 3. Hypokalemia. HOSPITAL COURSE: This is a 18-year-old female with acute onset of periumbilical abdominal pain, nausea, vomiting, history of loose and watery stool, generalized weakness, and tiredness. The patient was admitted to the floor. She was started on IV fluids, initially n.p.o., later on clear liquid diet. The patient's symptoms persisted, and because of persistence of symptom, the patient underwent an EGD, and EGD showed gastritis. The patient responded to Protonix, Zofran, and IV fluids, and she has been discharged with outpatient followup. Condition upon discharge was stable. She was seen by GI during course of hospitalization. Vahid Sheridan MD
== END 2019-01-29 18:14 | disposition home or self-care (01) ==
LOC: C.ER 10:55 → C.9E 15:57 → C.3T 16:47
PROVIDERS: ADMIT Internal Medicine; ATTEND Internal Medicine
DX: K29.00 Acute gastritis without bleeding (principal); E87.6 Hypokalemia; E86.0 Dehydration; J45.909 Unspecified asthma, uncomplicated; F12.90 Cannabis use, unspecified, uncomplicated
CPT/HCPCS: 36415; 43239; 71045; 74177; 76700; 76830; 76856; 78226; 80048; 80053; 80324; 80345; 80346; 80349; 80353; 80358; 80361; 81001; 82438; 82948; 83690; 83992; 84302; 84311; 84702; 84703; 85025; 85610; 85730; 87045; 87086; 88305; 88313; 88342; 89055; 96360; 96361; 96365; 96366; 96372; 96375; 96376; 99285; A9537; C9113; G0378; J0500; J1885; J2405; J2765; J7030; J7120; Q9967

== ENCOUNTER 2019-03-10 14:34 | Emergency (ER) | payer OTHER ==
[2019-03-10 14:37] VITALS: PULSE 78; RESP 18; TEMP 98.6
--- NOTE | 2019-03-10 15:01 | C.PDOC ---
History Of Present Illness 18 y/o F c PMHx asthma, anxiety p/w chest tightness today. Patient states she was having argument with boyfriend, felt chest tightness and shortness of breath, thought perhaps it was asthma, and took boyfriend's albuterol pump 7 or 8 times in a span of 15 minutes. She states she feels better at this time, only with some residual chest tightness. Denies any thoughts of self harm. Time Seen by Provider: 03/10/19 14:37 Chief Complaint (Nursing): Anxiety Past Medical History Vital Signs: Last Vital Signs Temp 98.6 F 03/10/19 14:36 Pulse 78 03/10/19 14:36 Resp 18 03/10/19 14:36 BP 104/65 03/10/19 14:36 Pulse Ox 100 03/10/19 14:36 - Medical History PMH: Asthma Surgical History: Tonsillectomy Family History: States: Unknown Family Hx - Social History Hx Alcohol Use: No Hx Substance Use: Yes (MARIJUANA) - Immunization History Hx Tetanus Toxoid Vaccination: No Hx Influenza Vaccination: No Hx Pneumococcal Vaccination: No Review Of Systems Except As Marked, All Systems Reviewed And Found Negative. Constitutional: Negative for: Fever Gastrointestinal: Negative for: Vomiting Physical Exam - Physical Exam Additional Physical Exam Comments: gen nad head nc/at eyes no icterus ent mmm neck supple chest no tenderness cv reg rate lungs no wheezing skin no rash extremities no edema neuro alert no focal deficit ED Course And Treatment O2 Sat by Pulse Oximetry: 100 Medical Decision Making Medical Decision Making: EKG NSR 63 bpm, no ST/T wave changes. Patient in no distress, counseled on proper albuterol use. Discharged home, f/u PMD, return to ED for worsening breathing, pain, or any psychiatric complaint. Disposition - Disposition Disposition: HOME/ ROUTINE Disposition Time: 15:04 Condition: GOOD Instructions: Anxiety, Adult (DC), Asthma in Adults - Clinical Impression Clinical Impression: Chest tightness
[2019-03-10 16:18] VITALS: BP 124/72; O2SAT 97
--- NOTE | 2019-03-11 12:42 | CARD ---
APPROVED REPORT Date of service: 03/10/2019 EKG Measurement Heart [id number] <Conclusion> Sinus rhythm with short [place] Cannot rule out Anterior infarct, age undetermined Abnormal ECG
== END 2019-03-10 15:36 | disposition home or self-care (01) ==
LOC: C.ER 14:34
DX: R07.89 Other chest pain (principal)